=== PATIENT | female | born 1945 | race Caucasian/White ===

== ENCOUNTER 2017-05-08 05:55 | Emergency (ER) | payer MEDICARE, OTHER ==
[2017-05-08] MEDS ORDERED: Sodium Chloride 0.9% 10 ML Syringe FLUSH PRN (06:08)
[2017-05-08 07:02] VITALS: BP 125/81
[2017-05-08 07:02] LABS: CHLORIDE,CL 99 mmol/L (98-107); SODIUM,NA 135 mmol/L (136-145)
[2017-05-08] MEDS ORDERED: Potassium Chloride 20 MEQ Tab.ER PO ONE (07:09)
--- NOTE | 2017-05-08 07:23 | EDM.PDOC ---
ED HPI GENERAL MEDICAL PROBLEM - General Chief Complaint: Neurological Problem Stated Complaint: dizziness Time Seen by Provider: 05/08/17 07:08 - History of Present Illness INITIAL COMMENTS - FREE TEXT/NARRATIVE: Assumed care of the patient at 0700. Please see Clyde Harper's dictation of assessment. I am discharging only. Left Headache Pain Score (Numeric/FACES): 6 - Related Data Allergies Allergy/AdvReac Type Severity Reaction Status Date / Time atorvastatin [From Lipitor] Allergy Body Aches Verified 05/08/17 06:02 Tetracyclines Allergy Nausea Verified 05/08/17 06:02 Home Meds: Home Meds Aspirin [Adult Low Dose Aspirin EC] 81 mg PO DAILY 06/10/16 [History] Calcium Carbonate 600 mg PO BID 06/10/16 [History] Carbidopa/Levodopa [Carbidopa-Levodopa 10-100] 1 tab PO DAILY 06/10/16 [History] Celecoxib 200 mg PO BID 06/10/16 [History] Cholecalciferol (Vitamin D3) [Vitamin D3] 2,000 unit PO DAILY 06/10/16 [History] Cimetidine [Cimetidine] 1 tab PO BID 06/10/16 [History] Estradiol [Vagifem] 1 tab VAG ASDIRECTED 06/10/16 [History] Flaxseed Oil 1,000 mg PO BID 06/10/16 [History] Fluticasone Propionate [Flonase] 2 sprays NASBOTH DAILY PRN 06/10/16 [History] Gluc 2KCl/Chondr/Trinity Hy/Hy Ac [Glucosamine & Chondroitin Cap] 1 each PO BID [History] Levothyroxine 75 mcg PO ACBREAKFAST 06/10/16 [History] Mineral Oil/Petrolatum,White [Artificial Tears Eye Ointment] 1 applic EYEBOTH ASDIRECTED PRN 06/10/16 [History] Olopatadine [Patanol 0.1% Ophth Soln] 1 drop EYEBOTH BID PRN 06/10/16 [History] [place]-3/DHA/Epa/Fish Oil [Fish Oil 500 mg Softgel] 2 each PO DAILY 06/10/16 [ History] Simvastatin [Simvastatin] 20 mg PO DAILY 06/10/16 [History] Tobramycin Sulf/Dexamethasone [IJP: Tobradex Ophth Susp] 1 drop EYEBOTH BID [History] Triamterene/Hydrochlorothiazid [Triamterene-HCTZ 37.5-25 MG] 1 each PO DAILY [History] Vitamin B Complex [B Complex] 1 each PO DAILY 06/10/16 [History] Carboxymethylcellulos/Glycerin [Refresh Optive Gel Eye Drops] 1 drop EYEBOTH BEDTIME 05/08/17 [History] Meclizine HCl 25 mg PO Q4H PRN 05/08/17 [History] Polyethylene Glycol 3350 [MiraLAX] 17 gm PO DAILY 05/08/17 [History] Past Medical History HEENT History: Reports: Cataract, Hard of Hearing Other HEENT History: Tear film insufficiency. Obstruction of nasolacrimal duct. Blephritis. Dry eye Cardiovascular History: Reports: Heart Murmur, High Cholesterol, Hypertension Gastrointestinal History: Reports: GERD Genitourinary History: Reports: None Musculoskeletal History: Reports: Osteoarthritis Other Musculoskeletal History: Spinal stenosis of lumbar spine Neurological History: Reports: Neuropathy, Peripheral Psychiatric History: Reports: None Endocrine/Metabolic History: Reports: Hypothyroidism, Osteoporosis Hematologic History: Reports: None Oncologic (Cancer) History: Reports: None Dermatologic History: Reports: Other (See Below) Other Dermatologic History: Herpes zoster - Past Surgical History HEENT Surgical History: Reports: Cataract Surgery Respiratory Surgical History: Reports: None GI Surgical History: Reports: Colonoscopy Female Surgical History: Reports: Hysterectomy Endocrine Surgical History: Reports: None Musculoskeletal Surgical History: Reports: Shoulder Surgery Social & Family History - Tobacco Use Smoking Status *Q: Former Smoker Used Tobacco, but Quit: Yes Month Tobacco Last Used: 300 Second Hand Smoke Exposure: No - Caffeine Use Caffeine Use: Reports: None - Alcohol Use Days Per Week of Alcohol Use: 0 Number of Drinks Per Day: 0 Total Drinks Per Week: 0 - Recreational Drug Use Recreational Drug Use: No Drug Use in Last 12 Months: No ED ROS GENERAL - Review of Systems Review Of Systems: ROS reveals no pertinent complaints other than HPI. ED EXAM, NEURO - Physical Exam Exam: Not Obtained Course - Vital Signs Last Recorded V/S: Last Vital Signs Temp 37.1 C 05/08/17 05:56 Pulse 64 05/08/17 05:56 Resp 18 05/08/17 05:56 BP 125/81 05/08/17 07:02 Pulse Ox 97 05/08/17 05:56 - Orders/Labs/Meds Orders: Active Orders 24 hr Category Date Time Status EKG Documentation Completion [RC] STAT Care 05/08/17 06:07 Active Head wo Cont [CT] Stat Exams 05/08/17 06:07 Taken CBC WITH AUTO DIFF [HEME] Stat Lab 05/08/17 06:32 Received Sodium Chloride 0.9% [Saline Flush] Med 05/08/17 06:08 Active 10 ml FLUSH ASDIRECTED PRN Peripheral IV Insertion Adult [OM.PC] Routine Oth 05/08/17 06:08 Ordered Medication Orders Sodium Chloride (Saline Flush) 10 ml FLUSH ASDIRECTED PRN PRN Reason: Keep Vein Open Labs: Laboratory Tests 05/08/17 05/08/17 Range/Units 06:32 06:32 PT 10.3 (10.0-12.8) SEC INR 0.9 L (2.0-3.5) Sodium 135 L (136-145) mmol/L Potassium 2.9 L* (3.5-5.1) mmol/L Chloride 99 (98-107) mmol/L Carbon Dioxide 28 (21-32) mmol/L BUN 13 (7-18) mg/dL Creatinine 1.0 (0.55-1.02) mg/dL Est Cr Clr Drug Dosing TNP Estimated GFR (MDRD) 54 Glucose 120 H (74-106) mg/dL Calcium 8.5 (8.5-10.1) mg/dL Corrected Calcium 8.58 (8.5-10.1) mg/dL Total Bilirubin 1.0 (0.2-1.0) mg/dL AST 22 (15-37) U/L ALT 22 (14-59) U/L Alkaline Phosphatase 61 (46-116) U/L Troponin I < 0.017 (<=0.056) ng/mL Total Protein 7.9 (6.4-8.2) g/dL Albumin 3.9 (3.4-5.0) g/dL Globulin 4.0 Albumin/Globulin Ratio 0.98 Meds: Medications Generic Name Dose Route Start Last Admin Trade Name Freq PRN Reason Stop Dose Admin Sodium Chloride 10 ml 05/08/17 06:08 Saline Flush FLUSH ASDIRECTED PRN Keep Vein Open Discontinued Medications Generic Name Dose Route Start Last Admin Trade Name Marina PRN Reason Stop Dose Admin Potassium Chloride 80 meq 05/08/17 07:09 Klor-Con M20 PO 05/08/17 07:10 ONETIME ONE - Re-Assessments/Exams Free Text/Narrative Re-Assessment/Exam: 05/08/17 07:18 In consultation with Clyde Harper, who visited with neurology in [place], plan is to discharge on a medrol dose pack. Patient potassium low at 2.9, will also give oral K+ here, and 3 days worth of oral potassium with instructions to follow up with her primary for a K+ recheck. Departure - Departure Time of Disposition: 07:23 Disposition: Home, Self-Care 01 Condition: Good Clinical Impression: Left upper extremity numbness - Discharge Information Forms: ED Department Discharge Additional Instructions: Please take your medrol dose pack and the oral potassium with food. Make a follow up appointment with your primary for a potassium level recheck. Follow up with your primary provider as symptoms indicate. Your tests for stroke and heart attack are negative. Please call us with any questions or concerns. - Problem List & Annotations (1) Left upper extremity numbness SNOMED Code(s): 336646908 Code(s): R20.0 - ANESTHESIA OF SKIN Status: Acute Priority: Low - Problem List Review Problem List Initiated/Reviewed/Updated: Yes - Assessment/Plan Assessment:: torticollis Plan: Please take your medrol dose pack and the oral potassium with food. Make a follow up appointment with your primary for a potassium level recheck. Follow up with your primary provider as symptoms indicate. Your tests for stroke and heart attack are negative. Please call us with any questions or concerns.
--- NOTE | 2017-05-21 02:48 | ER ---
Date of Service: 05/08/2017 SUBJECTIVE: Rufina presents to the emergency room with complaints of vertigo. She states that she has been experiencing some dizziness throughout the day. She does have a history of Meniere's disease and did take meclizine, which helped. She states that she was experiencing some superficial pain and paresthesia to the left side of her face. She states that she is also experiencing a buzzing type sound in her left ear. The patient denies any head trauma. She is not experiencing any chest pain or shortness of breath. She states that she is mildly nauseated. PAST MEDICAL HISTORY: 1. Meniere's disease. 2. Hypothyroidism. 3. Dyslipidemia. 4. Hypertension. 5. GERD. 6. Parkinson's disease. MEDICATIONS: 1. Aspirin. 2. Calcium carbonate. 3. Carbidopa/levodopa. 4. Celecoxib. 5. Famotidine. 6. Meclizine. 7. Triamterene hydrochlorothiazide. 8. Vitamin B complex. 9. Simvastatin. 10.Vitamin D3. 11.Vagifem. 12.Flonase. 13.Fish oil. 14.Glucosamine chondroitin. 15.Levothyroxine. 16.Patanol. 17.Polyethylene glycol. ALLERGIES: Atorvastatin and tetracycline. REVIEW OF SYSTEMS: Denies any head trauma, blurred vision, vision difficulties with speech or ambulation, numbness or tingling in her extremities. Please see history of present illness. PHYSICAL EXAMINATION: General: This is a 72-year-old female patient who is in no acute distress. Vital Signs: Blood pressure is 176/84, pulse rate 64, temperature is 37.1, respiratory rate 18, O2 saturations 97%. Skin: Warm, pink, and dry. HEENT. Head is normocephalic, atraumatic. Eyes, PERRLA. Extraocular movements are intact. Ears, TMs are clear. Mouth, oral mucosa is moist. Lungs: Clear to auscultation. Heart: Regular rate and rhythm. Abdomen: Soft, nontender. There is no masses or hepatosplenomegaly. Musculoskeletal: She has 5/5 strength in both her upper and lower extremities. Neurologic: Cranial nerves II through XII are intact. Her speech is fluent. Her gait is within normal limits. LABORATORY DATA: WBCs 6.8, hemoglobin is 13.1, platelets are 235. Coags; PT is 10.3, INR is 0.9, sodium is 135, potassium is 3.9, chloride is 99, bicarb is 28, BUN is 13, creatinine is 1.0. GFR is 54, glucose is 120, calcium is 8.5, corrected calcium is 8.58, total bilirubin is 1.0. AST is 22, ALT is 22, alkaline phosphatase is 51, troponin is less than 0.017. Total protein is 7.9, albumin is 3.9. A CT scan of the patient's brain was obtained and was pending at the time of shift change. Please refer to Darin Gan's dictation. EKG was obtained showing a sinus rhythm without any acute ST or T-wave abnormalities. ASSESSMENT: Vertigo. PLAN: Please refer to an Darin Gan's documentation regarding disposition of this patient. MWK: 05/21/2017 01:35:08 MODL: 05/21/2017 02:22:21 /[id number]
== END 2017-05-08 07:30 | disposition home or self-care (01) ==
LOC: VM.ED 05:55
DX: R42 Dizziness and giddiness (principal); I10 Essential (primary) hypertension; E78.5 Hyperlipidemia, unspecified; K21.9 Gastro-esophageal reflux disease without esophagitis; E03.9 Hypothyroidism, unspecified; Z88.1 Allergy status to other antibiotic agents; Z88.8 Allergy status to other drugs, medicaments and biological substances
CPT/HCPCS: 70450; 80053; 84484; 85025; 85610; 93005; 99284; A9270

== ENCOUNTER 2017-08-15 02:07 | Emergency (ER) | payer MEDICARE, OTHER ==
[2017-08-15 02:31] VITALS: BP 165/69
--- NOTE | 2017-08-15 02:35 | EDM.PDOC ---
ED HPI GENERAL MEDICAL PROBLEM - General Chief Complaint: General Stated Complaint: Dizziness/Nausea Time Seen by Provider: 08/15/17 02:25 Source of Information: Reports: Patient History Limitations: Reports: No Limitations - History of Present Illness Onset: Today Onset Date: 08/15/17 Onset Time: 02:15 Duration: Improving Severity: Mild Improves with: Reports: Medication Worsens with: Reports: Movement Context: Reports: Activity Associated Symptoms: Reports: Headaches. 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 (see below) (Patient did take a quarter of a tablet of 25 mg of meclizine, upon arrival to the emergency room she is starting to feel better and is not having as severe dizziness.) - Related Data Allergies Allergy/AdvReac Type Severity Reaction Status Date / Time atorvastatin [From Lipitor] Allergy Body Aches Verified 08/15/17 02:15 Tetracyclines Allergy Nausea Verified 08/15/17 02:15 Home Meds: Home Meds Aspirin [Adult Low Dose Aspirin EC] 81 mg PO DAILY 06/10/16 [History] Calcium Carbonate 600 mg PO BID 06/10/16 [History] Carbidopa/Levodopa [Carbidopa-Levodopa 10-100] 1 tab PO DAILY 06/10/16 [History] Celecoxib 200 mg PO BID 06/10/16 [History] Cholecalciferol (Vitamin D3) [Vitamin D3] 2,000 unit PO DAILY 06/10/16 [History] Cimetidine [Cimetidine] 1 tab PO BID 06/10/16 [History] Estradiol [Vagifem] 1 tab VAG ASDIRECTED 06/10/16 [History] Flaxseed Oil 1,000 mg PO BID 06/10/16 [History] Fluticasone Propionate [Flonase] 2 sprays NASBOTH DAILY PRN 06/10/16 [History] Gluc 2KCl/Chondr/Trinity Hy/Hy Ac [Glucosamine & Chondroitin Cap] 1 each PO BID [History] Levothyroxine 75 mcg PO ACBREAKFAST 06/10/16 [History] Mineral Oil/Petrolatum,White [Artificial Tears Eye Ointment] 1 applic EYEBOTH ASDIRECTED PRN 06/10/16 [History] Olopatadine [Patanol 0.1% Ophth Soln] 1 drop EYEBOTH BID PRN 06/10/16 [History] [place]-3/DHA/Epa/Fish Oil [Fish Oil 500 mg Softgel] 2 each PO DAILY 06/10/16 [ History] Simvastatin [Simvastatin] 20 mg PO DAILY 06/10/16 [History] Tobramycin Sulf/Dexamethasone [IJP: Tobradex Ophth Susp] 1 drop EYEBOTH BID [History] Triamterene/Hydrochlorothiazid [Triamterene-HCTZ 37.5-25 MG] 1 each PO DAILY [History] Vitamin B Complex [B Complex] 1 each PO DAILY 06/10/16 [History] Carboxymethylcellulos/Glycerin [Refresh Optive Gel Eye Drops] 1 drop EYEBOTH BEDTIME 05/08/17 [History] Meclizine HCl 25 mg PO Q4H PRN 05/08/17 [History] Polyethylene Glycol 3350 [MiraLAX] 17 gm PO DAILY 05/08/17 [History] Past Medical History HEENT History: Reports: Cataract, Hard of Hearing Other HEENT History: Tear film insufficiency. Obstruction of nasolacrimal duct. Blephritis. Dry eye Cardiovascular History: Reports: Heart Murmur, High Cholesterol, Hypertension Gastrointestinal History: Reports: GERD Genitourinary History: Reports: None Musculoskeletal History: Reports: Osteoarthritis Other Musculoskeletal History: Spinal stenosis of lumbar spine Neurological History: Reports: Neuropathy, Peripheral Psychiatric History: Reports: None Endocrine/Metabolic History: Reports: Hypothyroidism, Osteoporosis Hematologic History: Reports: None Oncologic (Cancer) History: Reports: None Dermatologic History: Reports: Other (See Below) Other Dermatologic History: Herpes zoster - Past Surgical History HEENT Surgical History: Reports: Cataract Surgery Respiratory Surgical History: Reports: None GI Surgical History: Reports: Colonoscopy Female Surgical History: Reports: Hysterectomy Endocrine Surgical History: Reports: None Musculoskeletal Surgical History: Reports: Shoulder Surgery Social & Family History - Tobacco Use Smoking Status *Q: Former Smoker Used Tobacco, but Quit: Yes Month Tobacco Last Used: 300 Second Hand Smoke Exposure: No - Caffeine Use Caffeine Use: Reports: None - Alcohol Use Days Per Week of Alcohol Use: 0 Number of Drinks Per Day: 0 Total Drinks Per Week: 0 - Recreational Drug Use Recreational Drug Use: No Drug Use in Last 12 Months: No ED ROS GENERAL - Review of Systems Review Of Systems: See Below Constitutional: Denies: Fever, Chills, Weakness, Decreased Appetite HEENT: Denies: Ear Pain, Eye Pain, Nose Pain, Throat Pain Respiratory: Denies: Shortness of Breath, Wheezing, Cough Cardiovascular: Denies: Chest Pain, Edema, Lightheadedness, Syncope Endocrine: Reports: No Symptoms GI/Abdominal: Denies: Abdominal Pain, Constipation, Diarrhea, Nausea, Vomiting : Reports: No Symptoms Musculoskeletal: Reports: No Symptoms Skin: Reports: No Symptoms Neurological: Reports: Dizziness, Headache, Other (Patient does have a history of Mnire's disease, she is supposed to take 25 mg of meclizine every 4 hours when she is having symptoms and tonight she only took a quarter of a tablet and is now in the emergency room.). Denies: Seizure Psychiatric: Reports: No Symptoms ED EXAM, GENERAL - Physical Exam Exam: See Below Free Text/Narrative:: Patient was at home, she did get out of bed to go to the bathroom and she was very dizzy and sat on the edge of the bed. She did wait for a time until she got up and she walked to the doorway of the bathroom and went back to bed as she was too dizzy. Her dizziness was a feeling of her spitting in the room. She does have a history of Mnire's disease in which she is supposed to take 25 mg of meclizine every 4 hours she has symptoms, tonight she took one fourth of a tablet and is now in the emergency room two and a half hours later and is starting to feel a little less dizzy. She did call 911 and was brought in by the ambulance service. Exam Limited By: No Limitations General Appearance: Alert, No Apparent Distress Eye Exam: Bilateral Eye: Normal Inspection Ears: Normal External Exam, Normal Canal, Normal TMs Ear Exam: Bilateral Ear: Auricle Normal, Canal Normal, TM normal Nose: Normal Inspection, Normal Mucosa, No Blood. No: Nasal Deformity, Nasal Drainage Throat/Mouth: Normal Inspection, Normal Lips, Normal Oropharynx, Normal Voice, No Airway Compromise. No: Inflammation Head: Atraumatic, Normocephalic. No: Facial Tenderness, Sinus Tenderness Neck: Normal Inspection, Supple, Full Range of Motion. No: Carotid Bruit, Tender Midline Respiratory/Chest: No Respiratory Distress, Lungs Clear, Normal Breath Sounds, No Accessory Muscle Use. No: Crackles, Rales, Rhonchi, Wheezing Cardiovascular: Normal Peripheral Pulses, Regular Rate, Rhythm, No Edema, No JVD , No Murmur. No: JVD, Diastolic Murmur, Systolic Murmur Peripheral Pulses: 2+: Radial (L), Radial (R) GI/Abdominal: Normal Bowel Sounds, Soft, Non-Tender, No Distention. No: Distended, Tender, Mass Back Exam: No: CVA Tenderness (L), CVA Tenderness (R) Extremities: Normal Inspection, Normal Range of Motion, No Pedal Edema Neurological: Alert, Oriented, CN II-XII Intact, Normal Cognition. No: Disoriented, Slow to Respond, Memory Loss Recent Events Psychiatric: Normal Affect, Normal Mood. No: Anxious Skin Exam: Warm, Dry, Intact, Normal Color, No Rash. No: Cyanosis, Rash Lymphatic: No Adenopathy Departure - Departure Time of Disposition: 03:39 Disposition: Home, Self-Care 01 Condition: Good Clinical Impression: Dizzinesses - Discharge Information Instructions: Labyrinthitis Referrals: Alyson Quinones DO [Primary Care Provider] - Forms: ED Department Discharge Additional Instructions: Patient is being discharged home after receiving 25 mg of meclizine in the emergency department. She is feeling much better and her dizziness is resolved. She does have a history of Mnire's disease in which she does take meclizine 25 mg every 4 hours when she does have dizziness symptoms. She is being discharged home and feeling much better at this time.
[2017-08-15] MEDS ORDERED: Meclizine 25 MG Tab PO ONE (02:42)
== END 2017-08-15 04:21 | disposition home or self-care (01) ==
LOC: VM.ED 02:07
DX: R42 Dizziness and giddiness (principal); Z88.1 Allergy status to other antibiotic agents; Z79.82 Long term (current) use of aspirin; Z79.899 Other long term (current) drug therapy; Z87.891 Personal history of nicotine dependence
CPT/HCPCS: 99284; A9270; 99283-GF

== ENCOUNTER 2023-02-08 18:03 | Emergency (ER) | payer MEDICARE, OTHER ==
[2023-02-08 18:06] VITALS: PULSE 62
[2023-02-08 18:53] VITALS: BP 177/77
[2023-02-08 18:58] LABS: PTT,PARTIAL THROMBOPLSTIN TIME 23.9 SEC (23.6-33.6)
[2023-02-08 19:00] LABS: CHLORIDE,CL 90 mmol/L (98-107); SODIUM,NA 132 mmol/L (136-145)
[2023-02-08] MEDS ORDERED: Ondansetron 4 MG Tab.DIS PO ONE (19:01)
[2023-02-08 19:05] LABS: ANION GAP 12.7 mmol/L (5-15); ESTIMATED GFR 51 mL/min (>=60)
[2023-02-08] MEDS ORDERED: Sodium Chloride 0.9% 10 ML Syringe FLUSH PRN (19:08)
[2023-02-08] MEDS ORDERED: Ondansetron 4 MG/2 ML SDV IVPUSH ONE (19:09)
[2023-02-08] MEDS ORDERED: Sodium Chloride 0.9% 1,000 ML IV SCH (19:15)
[2023-02-08] MEDS ORDERED: Iopamidol 612 MG/ML 100 ML Bottle IVPUSH ONE (19:41)
[2023-02-08] MEDS ORDERED: Take Home: Amoxicillin/Clavulanate K 875-125 MG Tab, 2 Tab Pack PO ONE (21:40)
[2023-02-08] MEDS ORDERED: Take Home: Acetaminophen/HYDROcodone 325-5 MG, 5 Tab Pack PO ONE (21:40)
== END 2023-02-08 22:00 | disposition home or self-care (01) ==
LOC: VM.ED 18:03
DX: K81.9 Cholecystitis, unspecified (principal); E78.00 Pure hypercholesterolemia, unspecified; I10 Essential (primary) hypertension; E03.9 Hypothyroidism, unspecified; Z88.8 Allergy status to other drugs, medicaments and biological substances; Z88.1 Allergy status to other antibiotic agents; Z79.899 Other long term (current) drug therapy
CPT/HCPCS: 36415; 74177; 80053; 81001; 82150; 83605; 83690; 83735; 85025; 85610; 85730; 86140; 96374; 99284; 99284-25; A9270-GY; J2405; Q9967

== ENCOUNTER 2024-12-22 08:37 | Emergency (ER) | payer MEDICARE, OTHER ==
[2024-12-22 08:52] VITALS: BP 159/60; PULSE 60
== END 2024-12-22 09:22 | disposition home or self-care (01) ==
LOC: VM.ED 08:37 → SUPCPDRO 08:37 → VM.ED 09:22
DX: M54.2 Cervicalgia (principal); I10 Essential (primary) hypertension; E78.00 Pure hypercholesterolemia, unspecified; E03.9 Hypothyroidism, unspecified; Z90.710 Acquired absence of both cervix and uterus; Z79.899 Other long term (current) drug therapy; Z79.890 Hormone replacement therapy; Z79.2 Long term (current) use of antibiotics; Z88.1 Allergy status to other antibiotic agents; Z88.8 Allergy status to other drugs, medicaments and biological substances
CPT/HCPCS: 99283